=== PATIENT | male | born 1985 | race Caucasian/White ===

== ENCOUNTER 2016-10-10 17:57 | Emergency (ER) | payer SELFPAY ==
[~2016-10-10] VITALS: Ht 172.7 cm; Wt 64.6 kg
[~2016-10-10 17:57] MED LIST: CLIN150 PO; ERYT1O RIGHT EYE
[2016-10-10 18:03] VITALS: BP 142/84; PULSE 87; RESP 16; TEMP 98.1; O2SAT 100
[2016-10-10] MEDS ORDERED: AMOX875T PO (18:25)
[2016-10-10] MEDS ORDERED: FLUT1SPR9 EACH NARE (18:25)
--- NOTE | 2016-10-10 18:27 | PD ---
HPI Chief Complaint: ENT Complaint Time Seen by Provider: 18:25 Travel History International Travel<30 days: No Contact w/Intl Traveler<30days: No Traveled to known affect area: No History of Present Illness HPI 30-year-old male that presents to the ED for evaluation of nasal swelling and discharge. Per patient she's had this for the past 4 days. Per patient his been using Afrin to help with this. Per patient he seems like it did help but he still continues to have congestion. Per patient he is concerned because his symptoms get worse at work and he cannot miss more work. At this time of cough. No chest pain or shortness of breath. Does have a history of asthma but denies any wheezing. Allergy to chocolate. PFSH Past Medical History Asthma: Yes Blood Disorders: No Anxiety: Yes (MANY ANXIETY ATTACKS, NEVER COME TO HOSPITAL FOR THEM) Depression: Yes Cancer: No Cardiac Catheterization: Yes (AT AGE 15) Cardiovascular Problems: Yes (had a mild heart attack at age 15. no further follow up) High Cholesterol: No Coronary Artery Disease: No Diabetes: No Diminished Hearing: No Gastrointestinal Disorders: Yes Genitourinary: No Immune Disorder: No Musculoskeletal: No Neurologic: No Psychiatric: No Respiratory: Yes Immunizations Current: No Myocardial Infarction: Yes (AGE 15) Thyroid Disease: No Past Surgical History Abdominal Surgery: Yes AICD: No Appendectomy: Yes (1993) Arteriovenous Shunt: No Cardiac Surgery: No Ear Surgery: No Endocrine Surgery: No Eye Surgery: No Genitourinary Surgery: No Gynecologic Surgery: No Insulin Pump: No Joint Replacement: No Neurologic Surgery: No Oral Surgery: No Pacemaker: No Thoracic Surgery: No Other Surgery: Yes Social History Alcohol Use: Yes (OCC) Tobacco Use: Yes (1 PPD) Substance Use: No Allergies-Medications (Allergen,Severity, Reaction): Coded Allergies: Chocolate (Verified Allergy, Intermediate, "SNEEZE", 10/10/16) Reported Meds & Prescriptions Reported Meds & Active Scripts Active No Active Prescriptions or Reported Medications Review of Systems Except as stated in HPI: all other systems reviewed are Neg Physical Exam Narrative GENERAL: Well-nourished, well-developed patient in no apparent distress. SKIN: Warm and dry. HEAD: Atraumatic. Normocephalic. EYES: Pupils equal and round reactive to light and accommodation. No scleral icterus. No injection or drainage. ENT: No nasal bleeding or discharge. Mucous membranes pink and moist. TMs are clear with no sign of infection or perforation. No mastoid tenderness. Ear canals are intact bilaterally. No lymphadenopathy. Nostril mucosa is red and moist with clear mucus noted. No sinus tenderness to palpation noted. Tonsils are not enlarged or swollen. No ulvua Deviation. Tongue is midline. NECK: Trachea midline. No JVD. No meningeal signs noted CARDIOVASCULAR: Regular rate and rhythm. RESPIRATORY: No accessory muscle use. Clear to auscultation. Breath sounds equal bilaterally. Data Data Last Documented VS Vital Signs Date Time Temp Pulse Resp B/P Pulse Ox O2 Delivery O2 Flow Rate FiO2 10/10/16 18:03 98.1 87 16 142/84 100 MDM Medical Decision Making Medical Screen Exam Complete: Yes Emergency Medical Condition: Yes Medical Record Reviewed: Yes Differential Diagnosis Sinusitis versus congestion versus rhinosinusitis Narrative Course 30-year-old male that presents to the ED for evaluation of cold-like symptoms. Patient was properly examined and was found to have signs and symptoms consistent with acute sinusitis. Likely some of the congestion and symptoms are related to overuse of Afrin. I recommend that he stop seizing this and I will give a prescription for Flonase. Patient was given amoxicillin. Follow- up with PCP. See ED worsening symptoms. Take OTC medicines as needed. Diagnosis Primary Impression: Sinusitis Qualified Code: J01.00 - Acute non-recurrent maxillary sinusitis Patient Instructions: General Instructions Additional Instructions: Motrin and Tylenol for pain and fever. You can use [id number] antihistamine as well as well as Mucinex as needed for runny nose and congestion. Cough drops for cough as needed. Drink plenty of fluids. Follow-up with PCP. See ED for worsening symptoms. Med/Other Pt SpecificInfo: Prescription(s) given Scripts Fluticasone Nasal [place] (Flonase Allergy Relief Children Nasal [place])50 Mcg/Act Spray2 [place] EACH NARE DAILY #1 BOTTLE Ref 0 50 mcg/spray Prov:José Manuel Paniagua MD 10/10/16 Amoxicillin 875 Mg Enn371 Mg PO BID 10 Days Prov:José Manuel Paniagua MD 10/10/16 Disposition: 01 DISCHARGE HOME Condition: Stable Viet Vo Oct 10, 2016 18:27
== END 2016-10-10 18:44 | disposition home or self-care (01) ==
LOC: PHEFT 17:57
DX: J32.9 Chronic sinusitis, unspecified (principal); F17.210 Nicotine dependence, cigarettes, uncomplicated
CPT/HCPCS: 99283

== ENCOUNTER 2016-10-28 17:29 | Emergency (ER) | payer SELFPAY ==
[~2016-10-28] VITALS: Ht 172.7 cm; Wt 60.0 kg
[~2016-10-28 17:29] MED LIST changes: +AMOX875T PO; -CLIN150 PO; -ERYT1O RIGHT EYE; +FLUT1SPR9 EACH NARE
[2016-10-28 17:32] VITALS: BP 131/89; PULSE 80; RESP 16; TEMP 98.7; O2SAT 98
[2016-10-28] MEDS ORDERED: TETANUS/DIPHTHERIA TOXOID ADULT 0.5 ML VIAL IM ONE (17:45)
[2016-10-28] MEDS ORDERED: CEPH-460 PO (18:03)
[2016-10-28] MEDS ORDERED: IBUP800T23 PO (18:03)
--- NOTE | 2016-10-28 18:03 | PD ---
HPI Chief Complaint: Laceration/Skin Injury Time Seen by Provider: 17:30 Travel History International Travel<30 days: No Contact w/Intl Traveler<30days: No Traveled to known affect area: No History of Present Illness HPI Patient is a 30-year-old male who presented to emergency room for evaluation of a laceration. Patient sustained a laceration on work, cutting his hand on a tuna fish can. The laceration is between the fourth and fifth digits on the left hand. Patient last tetanus vaccination was 6 years ago. He denies any numbness or tingling or loss of function. PFSH Past Medical History Hx Anticoagulant Therapy: No Asthma: Yes Blood Disorders: No Anxiety: Yes (MANY ANXIETY ATTACKS, NEVER COME TO HOSPITAL FOR THEM) Depression: Yes Cancer: No Cardiac Catheterization: Yes (AT AGE 15) Cardiovascular Problems: Yes (had a mild heart attack at age 15. no further follow up) High Cholesterol: No Coronary Artery Disease: No Diabetes: No Diminished Hearing: No Gastrointestinal Disorders: Yes Genitourinary: No Immune Disorder: No Musculoskeletal: No Neurologic: No Psychiatric: No Respiratory: Yes Immunizations Current: No Myocardial Infarction: Yes (AGE 15) Thyroid Disease: No Past Surgical History Abdominal Surgery: Yes AICD: No Appendectomy: Yes (1993) Arteriovenous Shunt: No Cardiac Surgery: No Ear Surgery: No Endocrine Surgery: No Eye Surgery: No Genitourinary Surgery: No Gynecologic Surgery: No Insulin Pump: No Joint Replacement: No Neurologic Surgery: No Oral Surgery: No Pacemaker: No Thoracic Surgery: No Other Surgery: Yes Social History Alcohol Use: Yes (OCC) Tobacco Use: Yes (1 PPD) Substance Use: No Allergies-Medications (Allergen,Severity, Reaction): Coded Allergies: Chocolate (Verified Allergy, Intermediate, "SNEEZE", 10/28/16) Reported Meds & Prescriptions Reported Meds & Active Scripts Active Keflex (Cephalexin) 500 Mg Cap 500 Mg PO Q12H 7 Days Review of Systems Except as stated in HPI: all other systems reviewed are Neg Skin: Positive Other (laceration) Physical Exam Narrative GENERAL: Well-nourished, well-developed patient. SKIN: Warm and dry. 6 mm superficial interdigital laceration in between the fourth and fifth finger on the left hand. Base of wound is well visualized, no foreign body noted. HEAD: Normocephalic. EYES: No scleral icterus. No injection or drainage. NECK: Supple, trachea midline. No JVD or lymphadenopathy. CARDIOVASCULAR: Regular rate and rhythm without murmurs, gallops, or rubs. RESPIRATORY: Breath sounds equal bilaterally. No accessory muscle use. GASTROINTESTINAL: Abdomen soft, non-tender, nondistended. MUSCULOSKELETAL: No cyanosis, or edema. 5 out of 5 muscle strength in bilateral upper extremities. Patient is neurovascularly intact. BACK: Nontender without obvious deformity. No CVA tenderness. Data Data Last Documented VS Vital Signs Date Time Temp Pulse Resp B/P Pulse Ox O2 Delivery O2 Flow Rate FiO2 10/28/16 17:32 98.7 80 16 131/89 98 Orders Tetanus/Diphtheria Tox Adult (Tetanus/Di (10/28/16 17:45) MDM Medical Decision Making Medical Screen Exam Complete: Yes Emergency Medical Condition: Yes Interpretation(s) Vital Signs Date Time Temp Pulse Resp B/P Pulse Ox O2 Delivery O2 Flow Rate FiO2 10/28/16 17:32 98.7 80 16 131/89 98 Differential Diagnosis Laceration versus contusion versus abrasion versus retained foreign body versus other Narrative Course Patient is 30-year-old male who presented to the department for evaluation of a laceration. Laceration occurred approximately 2 hours prior to arrival, patient cut his hand at work and continued to work. Laceration is superficial. Patient would benefit from stitches due to movement of the hand would continue to open the wound. Please see procedure report for laceration repair. Patient was advised that stitches would need to come out in 10-14 days. He was advised to keep wound clean and dry, avoid submerging in water. Patient will be on Keflex prophylactically due to the dirty wound as well as delay in care. Patient verbalized understanding of instructions. Patient was given strict return precautions. Patient is stable for discharge. Procedures Procedure Narrative LACERATION LOCATION: Interdigital on left hand between the fourth and fifth fingers LENGTH: 6 mm NUMBER OF STITCHES/BART: 3 stitches REPAIR: The area of the laceration was prepped with Betadine and sterilely draped. The laceration was infiltrated with 2% Xylocaine. The wound was copiously irrigated and explored without evidence of foreign body, tendon injury or neurovascular injury. The wound was closed using 4-0 Prolene. This was a 1 layer repair. A sterile dressing was applied. The patient was advised to keep the dressing clean and dry. Patient tolerated the procedure well. Diagnosis Primary Impression: Laceration Referrals: Primary Care Physician Patient Instructions: Care For Your Stitches (ED), General Instructions, Laceration (ED), Stitches Removal (DC) Departure Forms: Tests/Procedures, Work Release Special Instructions: Do not submerge handed water until wound is well- healed and stitches are removed Additional Instructions: Take medications as directed Stitches will need to be be removed in 10-14 days, this can be done at an urgent care, your primary doctor, or the emergency department Return to emergency department mainly for any new or worsening symptoms Keep stitches clean and dry, avoid submersion in water, you may shower as normal Med/Other Pt SpecificInfo: Prescription(s) given Scripts Ibuprofen 800 Mg [id number] Mg PO Q6HR PRN (PAIN) #40 TAB Ref 0 Prov:Radha Barrett 10/28/16 Cephalexin (Keflex)500 Mg [id number] Mg PO Q12H 7 Days Ref 0 Prov:Radha Barrett 10/28/16 Disposition: 01 DISCHARGE HOME Condition: Stable Radha Barrett Oct 28, 2016 18:03
== END 2016-10-28 18:20 | disposition home or self-care (01) ==
LOC: PHEFT 17:29
DX: S61.412A Laceration without foreign body of left hand, initial encounter (principal); F17.200 Nicotine dependence, unspecified, uncomplicated; I25.2 Old myocardial infarction; Z23 Encounter for immunization; Z87.09 Personal history of other diseases of the respiratory system; Z86.59 Personal history of other mental and behavioral disorders; Z87.19 Personal history of other diseases of the digestive system; W26.8XXA Contact with other sharp object(s), not elsewhere classified, initial encounter; Y99.0 Civilian activity done for income or pay
CPT/HCPCS: 12001; 90471; 90714

== ENCOUNTER 2017-02-04 12:02 | Emergency (ER) | payer SELFPAY ==
[~2017-02-04] VITALS: Ht 167.6 cm; Wt 62.6 kg
[~2017-02-04 12:02] MED LIST changes: -AMOX875T PO; +CEPH-460 PO; -FLUT1SPR9 EACH NARE; +IBUP800T23 PO
[2017-02-04 12:19] VITALS: BP 126/87; PULSE 92; RESP 16; TEMP 98.2; O2SAT 99
--- NOTE | 2017-02-04 12:40 | PD ---
HPI Chief Complaint: Laceration/Skin Injury Time Seen by Provider: 12:36 Travel History International Travel<30 days: No Contact w/Intl Traveler<30days: No Traveled to known affect area: No History of Present Illness HPI 31-year-old male presents to emergency Department with injury from sharp edge to the right distal lateral index finger. Patient states he's been unable to keep the bleeding stopping. He states the episodes finger from the DIP joint to the tip along the lateral and and the piece of skin came off. He has a pressure dressing in place with ongoing bleeding. He is up-to-date on his tetanus. He states the pain is 9/10. He is allergic to chocolate but no medication allergies. PFSH Past Medical History Hx Anticoagulant Therapy: No Asthma: Yes Blood Disorders: No Anxiety: Yes Depression: Yes Cancer: No Cardiac Catheterization: Yes (Age 15) Cardiovascular Problems: Yes (had a mild heart attack at age 15. no further follow up) High Cholesterol: No Coronary Artery Disease: No Diabetes: No Diminished Hearing: No Gastrointestinal Disorders: Yes Genitourinary: No Immune Disorder: No Musculoskeletal: No Neurologic: No Psychiatric: No Respiratory: Yes Immunizations Current: No Myocardial Infarction: Yes (Age 15) Thyroid Disease: No Tetanus Vaccination: < 5 Years Influenza Vaccination: No Past Surgical History Abdominal Surgery: Yes AICD: No Appendectomy: Yes (1993) Arteriovenous Shunt: No Cardiac Surgery: No Ear Surgery: No Endocrine Surgery: No Eye Surgery: No Genitourinary Surgery: No Gynecologic Surgery: No Insulin Pump: No Joint Replacement: No Neurologic Surgery: No Oral Surgery: No Pacemaker: No Thoracic Surgery: No Other Surgery: Yes Social History Alcohol Use: Yes ("About once a week") Tobacco Use: Yes (1 PPD) Substance Use: No Allergies-Medications (Allergen,Severity, Reaction): Coded Allergies: Chocolate (Verified Allergy, Intermediate, "SNEEZE", 02/04/17) Reported Meds & Prescriptions Reported Meds & Active Scripts Active Tramadol (Tramadol HCl) 50 Mg Tab 50 Mg PO Q6H PRN Keflex (Cephalexin) 500 Mg Cap 500 Mg PO Q8H Review of Systems Except as stated in HPI: all other systems reviewed are Neg General / Constitutional: No: Fever Eyes: No: Visual changes HENT: No: Headaches Cardiovascular: No: Chest Pain or Discomfort Respiratory: No: Shortness of Breath Gastrointestinal: No: Abdominal Pain Genitourinary: No: Dysuria Musculoskeletal: No: Pain Skin: No Rash Neurologic: No: Weakness Psychiatric: No: Depression Endocrine: No: Polydipsia Hematologic/Lymphatic: No: Easy Bruising Physical Exam Narrative GENERAL: Patient appears in mild distress. SKIN: Warm and dry. Normal color. Normal turgor. Patient has a 2 cm by half centimeter avulsion type laceration to the right distal lateral index finger it does not involve the nailbed. There is moderate bleeding. There is no obvious bony or tendon involvement. HEAD: Atraumatic. Normocephalic. EYES: Pupils equal and round. No scleral icterus. No injection or drainage. ENT: No nasal bleeding or discharge. Mucous membranes pink and moist. Pharynx is clear. NECK: Trachea midline. Supple and nontender. CARDIOVASCULAR: Regular rate and rhythm. RESPIRATORY: No accessory muscle use. Clear to auscultation. Breath sounds equal bilaterally. GASTROINTESTINAL: Abdomen soft, non-tender, nondistended. Hepatic and splenic margins not palpable. MUSCULOSKELETAL: Extremities without clubbing, cyanosis, or edema. No obvious deformities. Range of motion is full. 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 NEUROLOGICAL: Awake and alert. No obvious cranial nerve deficits. Motor grossly within normal limits. Five out of 5 muscle strength in the arms and legs. Normal speech. PSYCHIATRIC: Appropriate mood and affect; insight and judgment normal. Data Data Last Documented VS Vital Signs Date Time Temp Pulse Resp B/P Pulse Ox O2 Delivery O2 Flow Rate FiO2 02/04/17 12:19 98.2 92 16 126/87 99 Orders Ice/Cold Pack (02/04/17 12:50) Cephalexin (Keflex) (02/04/17 13:00) Acetaminophen (Tylenol) (02/04/17 13:00) Tramadol (Ultram) (02/04/17 13:00) MDM Medical Decision Making Medical Screen Exam Complete: Yes Emergency Medical Condition: Yes Differential Diagnosis Avulsion laceration to the right index finger. Bleeding. Workplace injury. Narrative Course Patient is medically stable at time of exam. Pressure dressing is applied to the wound after cleaning. This consisted of Xeroform gauze, nonstick dressing, and Lalita. Patient was given Keflex 500 mg by mouth as well as tramadol 50 mg by mouth. He is monitored here in the department for greater than 30 minutes to ensure bleeding was controlled. Patient is to maintain dressing as placed for the next 4 days, and keep it clean and dry. Patient follow-up in 4 days for wound check and dressing change either here or with his primary care physician. Patient is continued on Keflex 500 mg 3 times a day 7 days. Patient is given a prescription for tramadol 50 mg one every 6 hours when necessary pain #12. Patient is keep it elevated and iced for the next 24 hours. Work note is given. Patient follow-up in 4 days or sooner if symptoms worsen as needed. Diagnosis Primary Impression: Laceration Referrals: Primary Care Physician Patient Instructions: Finger Laceration (ED), General Instructions, Laceration Without Closure (ED) Departure Forms: Work Release Enter return to work date: February 05, 2017 Special Instructions: Limited use of right hand until cleared. Additional Instructions: Patient was given Keflex 500 mg by mouth as well as tramadol 50 mg by mouth. He is monitored here in the department for greater than 30 minutes to ensure bleeding was controlled. Patient is to maintain dressing as placed for the next 4 days, and keep it clean and dry. Patient follow-up in 4 days for wound check and dressing change either here or with his primary care physician. Patient is continued on Keflex 500 mg 3 times a day 7 days. Patient is given a prescription for tramadol 50 mg one every 6 hours when necessary pain #12. Patient is keep it elevated and iced for the next 24 hours. Work note is given. Patient follow-up in 4 days or sooner if symptoms worsen as needed. Med/Other Pt SpecificInfo: Prescription(s) given Scripts Tramadol 50 Mg Tab50 Mg PO Q6H PRN (PAIN) #12 TAB Prov:Arcadio Dumont MD 02/04/17 Cephalexin (Keflex)500 Mg [id number] Mg PO Q8H #21 CAP Prov:Arcadio Dumont MD 02/04/17 Disposition: 01 DISCHARGE HOME Condition: Stable Bandar Niño February 04, 2017 12:40
[2017-02-04] MEDS ORDERED: ACETAMINOPHEN 500 MG CPLT PO ONE (13:00)
[2017-02-04] MEDS ORDERED: traMADol HCL 50 MG TAB PO ONE (13:00)
[2017-02-04] MEDS ORDERED: CEPHALEXIN MONOHYDRATE 500 MG CAP PO ONE (13:00)
[2017-02-04] MEDS ORDERED: TRAM50TA PO (13:06)
[2017-02-04] MEDS ORDERED: CEPH-460 PO (13:06)
[2017-02-05] MEDS ORDERED: IBUP800T23 PO (19:12)
== END 2017-02-04 13:30 | disposition home or self-care (01) ==
LOC: PHEFT 12:02
DX: S61.210A Laceration without foreign body of right index finger without damage to nail, initial encounter (principal); W26.9XXA Contact with unspecified sharp object(s), initial encounter
CPT/HCPCS: 99282

== ENCOUNTER 2017-02-05 18:18 | Emergency (ER) | payer SELFPAY ==
[~2017-02-05] VITALS: Ht 170.2 cm; Wt 62.0 kg
[~2017-02-05 18:18] MED LIST changes: +TRAM50TA PO
[2017-02-05 18:26] VITALS: BP 141/100; PULSE 100; RESP 16; TEMP 98.4; O2SAT 96
--- NOTE | 2017-02-05 19:03 | PD ---
HPI Chief Complaint: Laceration/Skin Injury Time Seen by Provider: 19:00 Travel History International Travel<30 days: No Contact w/Intl Traveler<30days: No Traveled to known affect area: No History of Present Illness HPI 31-year-old male presents to emergency department status post type laceration to the distal right medial index finger yesterday. Patient was seen by me and pressure dressing was placed with Xeroform gauze. He is here today as he got the dressing completely waterlogged while at work today doing dishes. He is here for dressing change and wound check. He has no other complaints. He is allergic to chocolate. PFSH Past Medical History Hx Anticoagulant Therapy: No Asthma: Yes Blood Disorders: No Anxiety: Yes Depression: Yes Cancer: No Cardiac Catheterization: Yes (Age 15) Cardiovascular Problems: Yes (had a mild heart attack at age 15. no further follow up) High Cholesterol: No Coronary Artery Disease: No Diabetes: No Diminished Hearing: No Gastrointestinal Disorders: Yes Genitourinary: No Immune Disorder: No Musculoskeletal: No Neurologic: No Psychiatric: No Respiratory: Yes Immunizations Current: No Myocardial Infarction: Yes (Age 15) Thyroid Disease: No ?: Not Past Surgical History Abdominal Surgery: Yes AICD: No Appendectomy: Yes (1993) Arteriovenous Shunt: No Cardiac Surgery: No Ear Surgery: No Endocrine Surgery: No Eye Surgery: No Genitourinary Surgery: No Gynecologic Surgery: No Insulin Pump: No Joint Replacement: No Neurologic Surgery: No Oral Surgery: No Pacemaker: No Thoracic Surgery: No Other Surgery: Yes Social History Alcohol Use: Yes ("About once a week") Tobacco Use: Yes (1 PPD) Substance Use: No Allergies-Medications (Allergen,Severity, Reaction): Coded Allergies: Chocolate (Verified Allergy, Intermediate, "SNEEZE", 02/05/17) Reported Meds & Prescriptions Reported Meds & Active Scripts Active Ibuprofen 800 Mg Tab 800 Mg PO Q8H PRN Tramadol (Tramadol HCl) 50 Mg Tab 50 Mg PO Q6H PRN Keflex (Cephalexin) 500 Mg Cap 500 Mg PO Q8H Review of Systems Except as stated in HPI: all other systems reviewed are Neg General / Constitutional: No: Fever Eyes: No: Visual changes HENT: No: Headaches Cardiovascular: No: Chest Pain or Discomfort Respiratory: No: Shortness of Breath Gastrointestinal: No: Abdominal Pain Genitourinary: No: Dysuria Musculoskeletal: No: Pain Skin: No Rash Neurologic: No: Weakness Psychiatric: No: Depression Endocrine: No: Polydipsia Hematologic/Lymphatic: No: Easy Bruising Physical Exam Narrative GENERAL: Patient appears in no acute distress. SKIN: Warm and dry. Normal color. Normal turgor. Wound appears to be healing well with Xeroform gauze in place. Outer nonstick dressing and Lalita is removed as it is completely waterlogged. New dressing is replaced. Data Data Last Documented VS Vital Signs Date Time Temp Pulse Resp B/P Pulse Ox O2 Delivery O2 Flow Rate FiO2 02/05/17 18:26 98.4 100 16 141/100 96 Room Air MDM Medical Decision Making Medical Screen Exam Complete: Yes Emergency Medical Condition: Yes Differential Diagnosis Right index the laceration. Wound check. Dressing change. Narrative Course Patient is medically stable at time of exam. Cold water logged DRESSING IS REMOVED AND NEW DRESSING IS REPLACED BY MYSELF. Wound care is reviewed with the patient. Patient is given a prescription for ibuprofen 800 mg 3 times daily with food # 30. Patient is to follow-up for a wound check in 4 days as previously discussed. Diagnosis Primary Impression: Laceration Referrals: [facility] Patient Instructions: General Instructions Departure Forms: Work Release Enter return to work date: February 08, 2017 Additional Instructions: Wound care is reviewed with the patient. Patient is given a prescription for ibuprofen 800 mg 3 times daily with food # 30. Patient is to follow-up for a wound check in 4 days as previously discussed. Med/Other Pt SpecificInfo: Prescription(s) given, Wound Care Scripts Ibuprofen 800 Mg [id number] Mg PO Q8H PRN (Pain/Inflammation) #30 TAB Prov:Fortino Rushing MD 02/05/17 Disposition: 01 DISCHARGE HOME Condition: Stable Bandar Niño February 05, 2017 19:03
[2017-02-05] MEDS ORDERED: IBUP800T23 PO (19:12)
== END 2017-02-05 19:27 | disposition home or self-care (01) ==
LOC: PHEFT 18:18
DX: S61.210D Laceration without foreign body of right index finger without damage to nail, subsequent encounter (principal); Z48.00 Encounter for change or removal of nonsurgical wound dressing; W26.9XXD Contact with unspecified sharp object(s), subsequent encounter
CPT/HCPCS: 99282

== ENCOUNTER 2017-02-11 20:18 | Emergency (ER) | payer SELFPAY ==
[~2017-02-11] VITALS: Ht 172.7 cm; Wt 65.0 kg
[2017-02-11 20:28] VITALS: BP 129/90; PULSE 102; RESP 18; TEMP 98.2; O2SAT 99
--- NOTE | 2017-02-11 21:03 | PD ---
HPI Chief Complaint: Laceration/Skin Injury Time Seen by Provider: 21:03 Travel History International Travel<30 days: No Contact w/Intl Traveler<30days: No Traveled to known affect area: No History of Present Illness HPI 31-year-old male presents the emergency department for follow-up avulsion type laceration to the left distal index finger which occurred on February 04. Patient is here for wound check and medical clearance. Patient denies any significant problems other than pain. He has been keeping it clean and dry and change the dressing. He is allergic to chocolate. He also was unable to take ibuprofen secondary to stomach upset. PFSH Past Medical History Hx Anticoagulant Therapy: No Asthma: Yes Blood Disorders: No Anxiety: Yes Depression: Yes Cancer: No Cardiac Catheterization: Yes (Age 15) Cardiovascular Problems: Yes High Cholesterol: No Coronary Artery Disease: No Diabetes: No Diminished Hearing: No Gastrointestinal Disorders: Yes Genitourinary: No Immune Disorder: No Musculoskeletal: No Neurologic: No Psychiatric: No Respiratory: Yes Immunizations Current: No Myocardial Infarction: Yes (Age 15) Thyroid Disease: No Tetanus Vaccination: < 5 Years Influenza Vaccination: No Past Surgical History Abdominal Surgery: Yes AICD: No Appendectomy: Yes (1993) Arteriovenous Shunt: No Cardiac Surgery: No Ear Surgery: No Endocrine Surgery: No Eye Surgery: No Genitourinary Surgery: No Gynecologic Surgery: No Insulin Pump: No Joint Replacement: No Neurologic Surgery: No Oral Surgery: No Pacemaker: No Thoracic Surgery: No Other Surgery: Yes Social History Alcohol Use: Yes (Social) Tobacco Use: Yes (1 PPD) Substance Use: No Allergies-Medications (Allergen,Severity, Reaction): Coded Allergies: Chocolate (Verified Allergy, Intermediate, Sneezing, 02/11/17) Reported Meds & Prescriptions Reported Meds & Active Scripts Active Ibuprofen 800 Mg Tab 800 Mg PO Q8H PRN Keflex (Cephalexin) 500 Mg Cap 500 Mg PO Q8H Review of Systems Except as stated in HPI: all other systems reviewed are Neg General / Constitutional: No: Fever Eyes: No: Visual changes HENT: No: Headaches Cardiovascular: No: Chest Pain or Discomfort Respiratory: No: Shortness of Breath Gastrointestinal: No: Abdominal Pain Genitourinary: No: Dysuria Musculoskeletal: No: Pain Skin: No Rash Neurologic: No: Weakness Psychiatric: No: Depression Endocrine: No: Polydipsia Hematologic/Lymphatic: No: Easy Bruising Physical Exam Narrative GENERAL: Patient appears in no acute distress. SKIN: Warm and dry. Patient is a well healing granulated area on the left distal index finger without any signs of infection. His healing well. CARDIOVASCULAR: Regular rate and rhythm. RESPIRATORY: No accessory muscle use. MUSCULOSKELETAL: Extremities without clubbing, cyanosis, or edema. No obvious deformities. NEUROLOGICAL: Awake and alert. No obvious cranial nerve deficits. Motor grossly within normal limits. Five out of 5 muscle strength in the arms and legs. Normal speech. PSYCHIATRIC: Appropriate mood and affect; insight and judgment normal. Data Data Last Documented VS Vital Signs Date Time Temp Pulse Resp B/P Pulse Ox O2 Delivery O2 Flow Rate FiO2 02/11/17 20:28 98.2 102 18 129/90 99 MDM Medical Decision Making Medical Screen Exam Complete: Yes Emergency Medical Condition: Yes Differential Diagnosis Left index finger laceration. Wound check. Dressing change. Narrative Course Patient is medically stable at time of exam. Wound is examined and dressing placed. No further medical attention is felt warranted as well as things continue to improve as discussed. Patient is given a prescription for tramadol 50 mg one every 6 hours when necessary pain #20. Take Tylenol as well as needed. Follow-up as needed. Diagnosis Primary Impression: Laceration Referrals: [facility] Patient Instructions: Finger Laceration (ED), General Instructions Additional Instructions: Wound is examined and dressing placed. No further medical attention is felt warranted as well as things continue to improve as discussed. Patient is given a prescription for tramadol 50 mg one every 6 hours when necessary pain #20. Take Tylenol as well as needed. Follow-up as needed. Med/Other Pt SpecificInfo: Prescription(s) given, Wound Care Disposition: DISCHARGE HOME Condition: Stable Bandar Niño February 11, 2017 21:03
[2017-02-11] MEDS ORDERED: TRAM50TA PO (21:29)
== END 2017-02-11 21:41 | disposition home or self-care (01) ==
LOC: PHEFT 20:18
DX: S61.211A Laceration without foreign body of left index finger without damage to nail, initial encounter (principal); X58.XXXA Exposure to other specified factors, initial encounter
CPT/HCPCS: 99282